=== PATIENT | female | born 1990 | race Two or more races ===

== ENCOUNTER 2016-10-18 14:29 | Emergency (ER) | payer OTHER ==
[2016-10-18 15:05] VITALS: TEMP 98.2; O2SAT 97
[2016-10-18] MEDS ORDERED: fentaNYL 100 MCG/2 ML INJ IVP ONE (16:11)
[2016-10-18 16:30] LABS: % IMMATURE GRANULYOCYTES 0.2 % (0.0-1.1); ABSOLUTE IMMATURE GRANULOCYTES 0.01 10^3/uL (0.00-0.10); ADD DIFF? NO; ADD MORPH? NO; ADD SCAN? NO; ATYPICAL LYMPHOCYTE FLAG 50 (0-99); FRAGMENT RBC FLAG 0 (0-99); HEMATOCRIT 37.2 % (38.0-47.0); HEMOGLOBIN 12.5 g/dL (12.6-16.3); LEFT SHIFT FLG 0 (0-99); LIPEMIA HEMOLYSIS FLAG 80 (0-99); MEAN CELL HEMOGLOBIN 29.3 pg (27.9-34.1); MEAN CELL HEMOGLOBIN CONCENTR. 33.6 g/dL (32.4-36.7); MEAN CELL VOLUME 87.3 fL (81.5-99.8); MEAN PLATELET VOLUME 9.4 fL (8.7-11.7); PLATELET CLUMPS FLAG 10 (0-99); PLATELET COUNT 307 10^3/uL (150-400); RED BLOOD CELL COUNT 4.26 10^6/uL (4.18-5.33); RED CELL DISTRIBUTION WIDTH 13.1 % (11.5-15.2)
[2016-10-18 16:43] LABS: ALANINE AMINOTRANSFERASE 30 IU/L (9-52); ALBUMIN 3.9 g/dL (3.5-5.0); ALKALINE PHOSPHATASE 54 IU/L (38-126); ANION GAP 11 mEq/L (8-16); ASPARTATE AMINOTRANSFERASE 25 IU/L (14-46); BILIRUBIN,TOTAL 0.5 mg/dL (0.1-1.4); BILIRUBIN-CONJUGATED 0.3 mg/dL (0.0-0.5); BILIRUBIN-UNCONJUGATED 0.2 mg/dL (0.0-1.1); CALCIUM 9.2 mg/dL (8.5-10.4); CARBON DIOXIDE 22 mEq/l (22-31); CHLORIDE 106 mEq/L (97-110); CREATININE 0.5 mg/dL (0.6-1.0); GLOMERULAR FILTRATION RATE > 60; GLUCOSE 75 mg/dL (70-100); SODIUM 139 mEq/L (134-144); TOTAL PROTEIN 7.1 g/dL (6.3-8.2)
--- NOTE | 2016-10-18 17:39 | EDPHY ---
H & P Stated Complaint: mid abd pain x 2-3 days. vomited yesterday. no urinary sx. Time Seen by Provider: 10/18/16 15:53 HPI/ROS: CHIEF COMPLAINT: Upper abdominal pain HISTORY OF PRESENT ILLNESS: This is a 26-year-old female with a 3 day history of midepigastric and upper abdominal pain. She notes that the pain is worse after eating. She has decreased her oral intake and states that she has no appetite. She had 1 episode of vomiting 3 days ago, none since. She has had intermittent nausea. She denies constipation or diarrhea. She had a temperature of 37.6degrees on Thursday and was concerned that this might represent a fever. Her last normal menstrual period was at the beginning of September. She denies dysuria, hematuria, and urinary frequency. REVIEW OF SYSTEMS: A ten point review of systems was performed and is negative with the exception of the items mentioned in the HPI. Past medical history: Negative. Past surgical history: Negative. Social history: She lives with her and small daughter. She does not work outside the home. She does not use tobacco or alcohol products. No illicits. General Appearance: Alert. Vital signs reviewed. Eyes: Pupils equal and round, no conjunctival injection, no discharge. Anicteric. ENT, Mouth: Mucous membranes are moist, no oropharyngeal erythema or edema. Neck: No lymphadenopathy, supple. Respiratory: Lungs are clear to auscultation; no wheezes, rales, or rhonchi. Cardiovascular: Regular rate and rhythm; no murmur, rub, or gallop. Gastrointestinal: Abdomen is soft with mild midepigastric and right upper quadrant tenderness, no guarding no masses or organomegaly, bowel sounds normal. Skin: Warm and dry, no rashes on exposed skin, normal color. Back: Nontender to palpation over the thoracolumbar spine. No CVAT. Extremities: No lower extremity edema, no calf tenderness or swelling. Neurological: Alert and oriented. Moving all four extremities easily and equally. Psychiatric: Normal affect. - Personal History LMP (Females 10-55): 22-28 Days Ago Current Tetanus/Diphtheria Vaccine: Unsure Current Tetanus Diphtheria and Acellular Pertussis (TDAP): Unsure - Medical/Surgical History Hx Asthma: No Hx Chronic Respiratory Disease: No Hx Diabetes: No Hx Cardiac Disease: No Hx Renal Disease: No Hx Cirrhosis: No Hx Alcoholism: No Hx HIV/AIDS: No Hx Splenectomy or Spleen Trauma: No Other PMH: denies - Social History Smoking Status: Never smoked Constitutional: Initial Vital Signs Temperature (C) 36.8 C 10/18/16 15:02 Heart Rate 82 10/18/16 15:02 Respiratory Rate 16 10/18/16 15:02 Blood Pressure 104/66 10/18/16 15:02 O2 Sat (%) 97 10/18/16 15:02 O2 Delivery Mode Room Air Allergies/Adverse Reactions: No Known Allergies Allergy (Unverified 10/18/16 15:02) Home Medications: Medication Instructions Recorded Omeprazole [Prilosec 20 mg] 20 mg PO DAILY #30 capsule. 10/18/16 Medical Decision Making ED Course/Re-evaluation: Patient's CBC, chemistries, lipase, liver functions, and test are all normal/negative. In a 2nd discussion with the patient and her I learned that she was diagnosed with an ulcer at some point in the past. She took medication for that but is no longer doing so. It does sound as if she has had endoscopy performed. It is certainly possible that she again has peptic ulcer disease. I am going to start her on proton pump inhibitor. She will follow up with her primary care physician if she is not improving. I am also giving information on a diet that is appropriate for someone with ulcer disease. Addendum: I received a call from the patient's , who had accompanied her to the emergency department, reporting that she had had an episode of diarrhea after they returned home. No other changes. I recommend watchful waiting and reassured him. The patient herself had been concerned earlier that she might have eaten some bad food. Differential Diagnosis: I considered a differential diagnosis that includes but is not limited to appendicitis, pancreatitis, cholecystitis, gastritis/peptic ulcer disease, and urinary tract infection. - Data Points Laboratory Results: Laboratory Results 10/18/16 16:20 10/18/16 16:20 Medications Given: Discontinued Medications Fentanyl (Sublimaze) 75 mcg IVP EDNOW ONE Stop: 10/18/16 16:12 Last Admin: 10/18/16 16:25 Dose: 75 mcg Departure - Departure Disposition: Home, Routine, Self-Care Clinical Impression: Gastritis Qualifiers: Gastritis type: other gastritis Chronicity: acute Gastritis bleeding: without bleeding Qualified Code(s): K29.00 - Acute gastritis without bleeding Condition: Good Instructions: Gastritis (ED), Diet for Stomach Ulcers and Gastritis (ED) Referrals: ARLYN MEJIA [Medical Doctor] - As per Instructions Prescriptions: Omeprazole [Prilosec 20 mg] 20 mg PO DAILY #30 capsule.
[2016-10-18 18:07] LABS: COLOR YELLOW; LEUKOCYTE ESTERASE,URINE 2+ (NEGATIVE); NITRITE,URINE NEGATIVE (NEGATIVE)
[2016-10-18 18:16] VITALS: BP 96/60; PULSE 70; RESP 14
[2016-10-18 18:25] LABS: BACTERIA TRACE /hpf (NONE SEEN); MUCUS 3+ /lpf (NONE-1+); WBC,URINE 15-25 /hpf (0-3)
== END 2016-10-18 18:16 | disposition home or self-care (01) ==
DX: K29.00 Acute gastritis without bleeding (principal)
CPT/HCPCS: 96374; J3010